=== PATIENT | female | born 1995 | race Caucasian/White ===

== ENCOUNTER 2016-06-12 17:22 | Emergency (ER) | payer BC, OTHER ==
--- OUTSIDE RECORDS SUMMARY | 2016-06-12 18:42 | XMS REPORT | Continuity of Care Document ---
:1995 Author Organization [facility] ([facility]) Address [address] [place] [address] Phone [phone] Care Team Providers Name Role Phone Nestor Scales Primary Care Provider [phone] Source Comments This disclosure is being made pursuant to the Care Everywhere program, applicable federal and state laws, and may not contain all informaitonavailable regarding this patient.[facility] ([facility]) Active Allergies and Adverse Reactions Allergen Noted Date Severity Reactions Comments Penicillins Rash Had rash after penicillin that she received for an ear infection as a kid. Has used cephalosporins without problems. Current Medications Prescription Sig. Disp. Refills Start Date End Date Status calcium carbonate (200 Take 200 mg by Active mg Ca) 500 mg chewable mouth 3 times tablet daily pyridoxine (VITAMIN B-6) Take 100 mg by Active 100 mg tablet mouth daily ascorbic acid (VITAMIN Take 1,000 mg by Active C) 1,000 mg tablet mouth daily acetaminophen 325 mg Take 1 tablet 30 tablet 3 05/16/2015 Active tablet (325 mg total) by mouth every 6 hours as needed. ibuprofen 600 mg tablet Take 1 tablet 30 tablet 3 05/16/2015 Active (600 mg total) by mouth every 6 hours as needed for pain. ferrous gluconate 324 mg Take 1 tablet 30 tablet 1 05/16/2015 Active (38 mg iron) tablet (324 mg total) by mouth daily. Active Problems Problem Noted Date Vaginal bleeding, abnormal 06/07/2015 Mild intermittent asthma without complication 05/16/2015 History of premature rupture of membranes, first 05/16/2015 Anxiety and depression 05/10/2015 Scoliosis (and kyphoscoliosis), idiopathic 12/15/2006 Resolved Problems Problem Noted Date Resolved Date Delayed hemorrhage 06/07/2015 06/07/2015 labor in third trimester 05/10/2015 05/16/2015 Social History Tobacco Use Types Packs/Day Years Used Date Never Smoker Smokeless Tobacco: Never Used Alcohol Use Drinks/Week oz/Week Comments No Last Filed Vital Signs Vital Sign Reading Time Taken Blood Pressure 117/74 06/27/2015 8:04 AM HOSPITAL MANAGER Pulse 100 06/27/2015 8:04 AM HOSPITAL MANAGER Temperature 36.1 C (97 F) 06/07/2015 12:55 PM HOSPITAL MANAGER Respiratory Rate 16 05/16/2015 8:01 AM HOSPITAL MANAGER Height 1.603 m (5' 3.11") 12/19/2006 8:27 AM CDT Weight 61.7 kg (136 lb 0.4 oz) 06/27/2015 8:04 AM HOSPITAL MANAGER Body Mass Index - - Oxygen Saturation 99% 05/16/2015 8:01 AM HOSPITAL MANAGER Plan of Care Health Maintenance Due Date Last Done Comments Hepatitis B Vaccine (1 of 3 - Primary Series) 1993 HPV Vaccine (1 of 3 - Female/Unknown 3 Dose Series) 02/05/2004 Tdap Vaccine 02/05/2004 Cervical Cancer Screening 2011 Lipid Disorder Screening 2011 MMR Vaccine 2011 Td Vaccine 2011 Varicella Vaccine (1 of 2 - Adult - No Evidence of 2011 Immunity) Pneumococcal Vaccine (1 of 1 - PPSV23) 02/05/2012 Influenza Vaccine: Seasonal (#1) 12/01/2015 Results from Last 3 Months Not on file
[2016-06-12 18:45] LABS: Hematocrit 41.6 % (37.0-47.0); Hemoglobin 13.3 gm/dL (12.5-16.0); Mean Cell Volume 78.9 fl (78-100); Mean Corpuscular Hemoglobin 25.2 pg (27-31); Mean Platelet Volume 9.7 fl (6.0-9.5); Neutrophil # 4.4 K/mm3 (1.3-6.0); Platelet Count 389 K/mm3 (150-450); Red Blood Count 5.27 M/mm3 (4.2-5.4); Red Cell Distribution Width 17.1 % (11.5-14.0); White Blood Count 7.3 K/mm3 (4.0-10.5)
[2016-06-12 18:57] LABS: Urine Appearance Clear; Urine Bacteria None Seen; Urine Bilirubin Negative (NEGATIVE); Urine Blood Negative /ul (NEGATIVE); Urine Color Yellow; Urine Ketone Negative (NEGATIVE); Urine Nitrite Negative (NEGATIVE); Urine Protein Negative (NEGATIVE); Urine RBC None Seen /hpf (0-5); Urine Urobilinogen Normal (NORMAL); Urine WBC 0-5 /hpf (0-5); Urine pH 7.5 pH (5.0-7.0)
--- NOTE | 2016-06-12 19:03 | ERNOTE ---
Medical Problem HPI - Narrative Date of Service: 06/12/16 - General Chief Complaint: General Assessment Time Seen by Provider: 06/12/16 18:12 Source: patient Exam Limitations: no limitations - Immun/Allergies/Home Medications Immunizations: IMMUNIZATION HX Immunizations Up to Date Yes History of Influenza Vaccine Yes Hx Pneumococcal Vaccination No Allergies/Adverse Reactions: Allergies Penicillins Allergy (Verified 06/12/16 17:30) strawberry Allergy (Verified 06/12/16 17:30) Home Medications: HOME MEDICATIONS Lactobacillus Combo No.6 [Probiotic Complex] 1 each PO DAILY 10/28/15 [Last Taken Unknown] Multivitamin [One Daily Essential] 1 each PO DAILY 10/28/15 [Last Taken Unknown] LORazepam [Ativan] 0.5 mg PO TID PRN #30 tablet 11/10/15 [Last Taken Unknown] Ascorbic Acid [Vitamin C] 1,000 mg PO DAILY 06/12/16 [Last Taken Unknown] Cholecalciferol [Vitamin D] 1,000 unit PO DAILY 06/12/16 [Last Taken Unknown] Pnv95/Ferrous Fumarate/FA [ Caplet] 1 each PO DAILY 06/12/16 [Last Taken Unknown] - History of Present History Narrative: Pt. comes in with c/o chest pain and SOB for an hour prior to arrival that began suddenly and made her dizzy for a few seconds. Pt. denies any LOC, cough , sputum, swelling, fever, or recent illness but states that she has recently been undergoing treatment for low iron and IBC and TIBC. Pt. also has had SVT recently and had work up for this yesterday and states that she felt like she had some arrhythmia earlier today. Pt. denies any prehospital treatment, alleviating factors, or aggravating factors. Review of Systems - Review of Systems Constitutional: Present: weakness, fatigue, weight loss. Absent: fever, chills , malaise, decreased activity level EYE: Present: no symptoms reported ENT: Present: no symptoms reported Respiratory: Present: shortness of breath. Absent: cough, orthopnea, wheezing, stridor Cardiology: Present: chest pain, palpitations. Absent: syncope, edema Gastrointestinal/Abdominal: Present: no symptoms reported. Absent: nausea, vomiting, diarrhea Genitourinary: Present: no symptoms reported Musculoskeletal: Present: no symptoms reported. Absent: back pain, joint pain Skin: Present: no symptoms reported Neurological: Present: dizziness/light-headedness. Absent: headache, numbness, tingling All Other Systems: All systems neg except as marked - Patient's Past Medical History Patient History - Medical: Anemia, Anxiety, Depression, Migraines Patient History - Cardiac/Respiratory: Arrhythmias Patient History - Cancer: No Hx of Cancer Patient History - Surgical Procedures: Back Surgery Patient History - Other: None LMP (Calendar): 10/03/15 - Family History Mother Family History - Medical: No pertinent hx Family History - Cardiac/Respiratory: No pertinent hx - Social History Living Situations: home Abuse History: No History of abuse Psych History: Hx of Anxiety, Hx of Depression Alcohol Use: rarely Drug Use: none - Immunizations Immunizations Up to Date: Yes Hx Pneumococcal Vaccination: No History of Influenza Vaccine: Yes Physical Exam - Physical Exam General Appearance: Present: wd/wn, alert, no apparent distress Eye Exam: Normal inspection: bilateral, PERRL: bilateral, EOMI: bilateral Ears, Nose, Throat: Present: normal ENT inspection, hearing grossly normal, normal pharynx Neck: Present: normal inspection, nontender. Absent: lymphadenopathy (R), lymphadenopathy (L) Respiratory: Present: no respiratory distress, normal breath sounds, no accessory muscle use, chest nontender, lungs clear Cardiovascular/Chest: Present: regular rate, rhythm, no murmur, normal peripheral pulses Gastrointestinal/Abdominal: Present: normal bowel sounds, nontender, nondistended, soft, no organomegaly Back Exam: Present: normal inspection, normal range of motion, no CVA tenderness , no vertebral tenderness Extremity Exam: Present: normal inspection, non-tender, no edema, normal range of motion Neurological Exam: Present: alert, oriented, normal mood/affect, no motor/ sensory deficits Skin Exam: Present: normal color, warm/dry. Absent: pallor, skin rash ED Progress - Date and Time Seen: Date and Time: 06/12/16 19:32 Feel that as pt. has had arrhythmia in the past that this could be related Pt. primary unavailable at this time but feel taht pt. could use this. Will order if available from [facility] if not will have pt. follow up with PCP on Tuesday as scheduled. 06/12/16 20:03 Holter available will send home with holter - Results and Orders Patient's Lab Results:: I have reviewed the patient's lab results. - Vital Signs Patient's Vital Signs:: I have reviewed the patient's vital signs. Vital Signs: Vital Signs 06/12/16 06/12/16 17:24 17:33 Temperature 36.6 C Pulse Rate 98 98 Respiratory 12 14 Rate Blood Pressure 145/85 118/68 O2 Sat by Pulse 100 99 Oximetry - EKG EKG: other - sinus tachycardia EKG read: Interp. by me - X-Ray X-Ray #1 X-Ray: chest Interpretation: Interp. by me X-ray Comments: no acute cardiopulmondary process. - Progress/Reassessment Chief Complaint: General Assessment Progress:: Pain free at discharge Departure - Departure Clinical Impression: Arrhythmia Qualifiers: Arrhythmia type: unspecified cardiac arrhythmia Qualified Code(s): I49.9 - Cardiac arrhythmia, unspecified Disposition: Home self-care Condition: Good Instructions: Paroxysmal Supraventricular Tachycardia Additional Instructions: Please follow up with Dr Cote as scheduled on Tuesday. Referrals: Ahsan Cote MD [Primary Care Provider] -
[2016-06-12 19:04] LABS: ALT 39 U/L (19-67); AST 24 U/L (0-48); Albumin * 4.4 gm/dl (3.4-5.0); Alkaline Phosphatase * 84 U/L (50-170); BUN/Creatinine Ratio 5.1 (9.0-21.6); Bilirubin, Total 0.4 mg/dL (0.0-1.1); Blood Urea Nitrogen 4 mg/dL (3-23); Ca. Corrected For Albumin 8.1 mg/dL (8.4-10.2); Calcium * 8.7 mg/dL (7.9-10.9); Carbon Dioxide 28.8 mmol/L (24-32.6); Chloride 105 mmol/L (97-106); Glucose * 83 mg/dL (70-110); Potassium 3.8 mmol/L (3.4-4.6); Sodium 143 mmol/L (132-142); Total Protein 8.5 gm/dL (6.2-8.2); Troponin I Less than 0.017 ng/ml (0.00-0.10)
[2016-06-12 19:07] LABS: INR 1.07 INR (0.90-1.10); Partial Thrombolplastin Time 28.9 Seconds (24-32); Prothrombin Time (Patient) 11.1 Seconds (9.4-11.4)
[2016-06-12 20:25] VITALS: BP 108/68
== END 2016-06-12 20:20 | disposition home or self-care (01) ==
LOC: ER 17:22
DX: I49.9 Cardiac arrhythmia, unspecified (principal)